=== PATIENT | female | born 1965 | race Caucasian/White ===

== ENCOUNTER 2018-08-05 10:16 | Inpatient (IN) | payer OTHER ==
[~2018-08-05] VITALS: Ht 172.7 cm; Wt 60.5 kg
[2018-08-05] VITALS (8 sets, daily range): BP systolic 101–130; BP diastolic 55–73; PULSE 62–85
[2018-08-05 10:59] LABS: BASO % 0.4 % (0.0-2.0); EOS # 0.2 (0.0-0.7); EOS % 3.6 % (0-4.0); GRAN # 2.9 (1.4-6.5); GRAN % 57.7 % (42.2-75.2); HEMOGLOBIN 8.5 g/dl (12.5-16.0); LYMPH # 1.6 (1.2-3.4); LYMPH % 30.8 % (20.0-51.0); MEAN CELL VOLUME 81 fl (80.0-100.0); MEAN CORPUSCULAR HEMOGLOBIN 25 pg (27.0-31.0); MEAN CORPUSCULAR HGB CONC 31 g/dl (33.0-37.0); MEAN PLATELET VOLUME 9.5 fl (7.4-10.4); MONO # 0.4 (0.1-0.6); MONO % 7.3 % (1.7-9.3); PLATELET COUNT 259 K/mm3 (130-400); RED BLOOD COUNT 3.44 M/mm3 (4.10-5.30); REDCELL DISTRIBUTION WIDTH-CV 15.4 % (11.5-14.5)
[2018-08-05 11:00] LABS: HEMATOCRIT 27.7 % (37.0-47.0)
[2018-08-05] MEDS ORDERED: ZIKS HEMATOGEN1 SG1 (11:03)
[2018-08-05 11:04] LABS: ALBUMIN 3.9 gm/dL (3.5-5.0); BILIRUBIN,TOTAL 0.2 mg/dL (0.0-1.0); CALCIUM 9.1 mg/dL (8.4-10.2); CREATININE, serum 0.8 mg/dL (0.52-1.25); POTASSIUM 3.7 mmol/L (3.4-5.0); TOTAL PROTEIN 7.1 gm/dL (6.4-8.2)
[2018-08-06 00:45] VITALS: BP 103/40; PULSE 90; TEMP 97.6
[2018-08-06 06:45] VITALS: BP 100/45; PULSE 66; TEMP 98.1
[2018-08-06] MEDS ORDERED: PERCOCET 325 MG1 TA2 PO (09:03)
[2018-08-06] MEDS ORDERED: IBU600 MG PO (09:03)
== END 2018-08-06 14:22 | disposition home or self-care (01) | DRG 742 ==
LOC: COL.ER 10:16 → OB 14:44
PROVIDERS: Nurse Practitioner Primary Care; Obstetrics & Gynecology
PROC: 0UT7FZZ Resection of Bilateral Fallopian Tubes, Via Natural or Artificial Opening With Percutaneous Endoscopic Assistance (ICD-10-PCS; 2018-08-05)
PROC: 0UT9FZZ Resection of Uterus, Via Natural or Artificial Opening With Percutaneous Endoscopic Assistance (ICD-10-PCS; principal; 2018-08-05 15:00)
DX: N92.0 Excessive and frequent menstruation with regular cycle (principal); D62 Acute posthemorrhagic anemia; H40.9 Unspecified glaucoma; N85.2 Hypertrophy of uterus
CPT/HCPCS: A4314; J0690; J1100; J1885; J2405; J2550; J2704; J2710; J3010; J7030; P9016

== ENCOUNTER 2019-02-07 08:50 | Day surgery (SDC) | payer BC ==
[~2019-02-07] VITALS: Ht 172.7 cm; Wt 60.7 kg
[2019-02-07 08:40] VITALS: BP 116/87; PULSE 87; TEMP 97.9
[~2019-02-07 08:50] MED LIST: BETIMOL 5 ML5 ML OU; IBU600 MG PO; PERCOCET 325 MG1 TA2 PO; ZIKS HEMATOGEN1 SG1
[2019-02-07 09:45] VITALS: BP 94/49; PULSE 63; TEMP 97.9
[2019-02-07 10:00] VITALS: BP 99/63; PULSE 67
--- NOTE | 2019-02-07 10:07 | NUR ---
PATIENT ARRIVES VIA CART FROM SURGERY. VS STARTED. ALERT AND ORIENTED X 4. RESPIRTATIONS EVEN AND UNLABORED. LUNGS CLEAR BILATERALLY. DENIES PAIN OR NAUSEA. WILL CON TINUE TO MONITOR. CALL LIGHT WITHIN REACH.
--- NOTE | 2019-02-07 10:11 | NUR ---
PATIENT REQUESTS MUFFFIN, JUICE AND WATER. VS CONTINUE. DENIES PAIN AND NAUSEA. DENIES ANY OTHER NEEDS. CALL LIGHT WITHIN REACH. WILL CONTINUE TO MONITOR.
[2019-02-07 10:15] VITALS: BP 101/51; PULSE 68; TEMP 98
[2019-02-07 10:30] VITALS: BP 99/47; PULSE 69
[2019-02-07 11:15] VITALS: BP 106/62; PULSE 68; TEMP 98.2
--- NOTE | 2019-02-07 11:26 | NUR ---
PATIENT REMAISN STABLE. TOLERATED FOOD AND WATER. DENIES NAUSEA AND PAIN. CALL LIGHT IN REACH. WILL CONTINUE TO MONITOR.
--- NOTE | 2019-02-07 11:28 | NUR ---
VS STABLE. WILL CONTINUE TO MONITOR.
--- NOTE | 2019-02-07 11:29 | NUR ---
IV DC'D. VS STABLE. DISCHARGE INSTRUCTIONS GIVEN TO PATIENT, VERBALZIED UNDERSTANDING. DENIES QUESTIONS. PAIENT GETTING DRESSED AND WAITING FOR HER RIDE.
--- NOTE | 2019-02-07 11:41 | NUR ---
Patient discharged to home ambulatory with son at her side.
== END 2019-02-07 11:40 | disposition home or self-care (01) ==
LOC: SDCO 08:50
DX: Z12.11 Encounter for screening for malignant neoplasm of colon (principal); D50.9 Iron deficiency anemia, unspecified; Z90.710 Acquired absence of both cervix and uterus
CPT/HCPCS: J2250; J3010; J7030

== ENCOUNTER → 2019-03-11 | Outpatient (CLI) | payer BC | LOC: MC.RAD 09:24 | DX: Z12.31 Encounter for screening mammogram for malignant neoplasm of breast (principal); N64.89 Other specified disorders of breast ==

== ENCOUNTER → 2019-03-14 | Outpatient (CLI) | payer BC | LOC: MC.RAD 07:24 | DX: N64.89 Other specified disorders of breast (principal) ==